=== PATIENT | male | born 1985 | race Hispanic/Latino ===

== ENCOUNTER 2018-06-05 11:05 | Emergency (ER) | payer MEDICAID ==
[~2018-06-05] VITALS: Ht 180.3 cm; Wt 65.8 kg
[2018-06-05 11:08] VITALS: BP 116/87
[2018-06-05] MEDS ORDERED: Famciclovir 500 tab ORAL SCH (11:15)
[2018-06-05] MEDS ORDERED: Naproxen 500mg tab ORAL ONE (11:15)
[2018-06-05] MEDS ORDERED: FAMCICLOVIR500 MG ORAL (11:21)
[2018-06-05] MEDS ORDERED: NAPROXEN375 M2 ORAL (11:21)
--- NOTE | 2018-06-05 11:21 | Emergency Room Report ---
History of Present Illness General Chief Complaint: Skin Rash/Abscess Source: Patient Present Illness HPI Rash right thorax/back almost 48 hours. Burning pain. No trauma, no fever. No abd pain, no cp, no sob, no cough. Pt. arrested around the same time. In custody ever since. No similar history No meds Allergies: Coded Allergies: No Known Allergies (Unverified , 06/05/18) Nursing Documentation-[facility] Past Medical History: No Stated History Review of Systems Constitutional: Reports: no symptoms Eye: Reports: no symptoms ENT: Reports: no symptoms Respiratory: Reports: no symptoms Cardiovascular: Reports: no symptoms Gastrointestinal: Reports: no symptoms Genitourinary: Reports: no symptoms Musculoskeletal: Reports: no symptoms Skin: Reports: see HPI, rash Psychiatric: Reports: no symptoms Neurological: Reports: no symptoms Endocrine: Reports: no symptoms Hematologic/Lymphatic: Reports: no symptoms Allergic: Reports: no symptoms All Other Systems: negative except mentioned in HPI Physical Exam Vital Signs Date Time Temp Pulse Resp B/P (MAP) Pulse Ox O2 Delivery O2 Flow Rate FiO2 06/05/18 11:03 97.8 93 20 116/87 98 Room Air 97.9 Sp02 EP Interpretation: reviewed, normal General Appearance: normal inspection, well appearing, no apparent distress, alert, GCS 15, non-toxic Head: normocephalic, atraumatic Eyes: bilateral eye normal inspection, bilateral eye PERRL, bilateral eye EOMI ENT: normal ENT inspection, hearing grossly normal, normal pharynx, no angioedema, normal voice, moist mucus membranes Neck: normal inspection, full range of motion, supple, no meningismus, no bony tend Respiratory: normal inspection, lungs clear, normal breath sounds, no rhonchi, no respiratory distress, no retraction, no accessory muscle use, no wheezing Cardiovascular #1: normal inspection, regular rate, rhythm, no edema Gastrointestinal: normal inspection, normal bowel sounds, non tender, soft, no mass, non-distended Musculoskeletal: gait/station normal, normal range of motion Neurologic: normal inspection, alert, oriented x3, responsive, motor strength/ tone normal Psychiatric: normal inspection, judgement/insight normal, memory normal Suicide Risk Assessment: Suicidal Ideation: No Had intent to initiate attempt: No Pt's plan for suicide attempt: No Has means to complete attempt: No Skin: other - zoster right T8-9 Medical Decision Making Diagnostic Impression: Primary Impression: Zoster Last Vital Signs Date Time Temp Pulse Resp B/P (MAP) Pulse Ox O2 Delivery O2 Flow Rate FiO2 06/05/18 11:08 97.9 20 116/87 98 Room Air 97.9 06/05/18 11:03 93 Disposition: D/C TO LAW E[facility] IN [facility] Condition: Stable Scripts Naproxen* (NAPROXEN*) 375 Mg Tablet.dr 375 MG ORAL TWICE A DAY for 10 Days, #20 TAB Prov: Maycol Pitt M.D. 06/05/18 Famciclovir* (FAMVIR*) 500 Mg Tablet 500 MG ORAL EVERY 8 HOURS for 7 Days, #21 TAB Prov: Maycol Pitt M.D. 06/05/18 Patient Instructions: Jenifer [id number] Maycol Pitt M.D. Jun 05, 2018 11:21
[2018-06-05 11:50] VITALS: BP 116/87
== END 2018-06-05 11:50 ==
LOC: EDBD 11:05 → EMR 11:25
DX: B02.9 Zoster without complications (principal)
CPT/HCPCS: 99283